=== PATIENT | female | born 1985 | race Caucasian/White ===

== ENCOUNTER → 2017-06-15 | Outpatient (CLI) | payer BC | END | disposition home or self-care (01) | LOC: C.PAPS 18:00 | PROVIDERS: ATTEND Obstetrics & Gynecology | DX: Z01.419 Encounter for gynecological examination (general) (routine) without abnormal findings (principal) ==

== ENCOUNTER → 2017-06-24 | Outpatient (CLI) | payer BC ==
[2017-06-24 13:05] LABS: BASO % 0.7 %; BASO ABS # 0.05 K/uL (0-0.2); COMPLETE YES; EOS % 4.4 %; IG% 0.1 %; LYMPH % 30.8 %; LYMPH ABS # 2.22 K/uL (1.2-3.4); MEAN CELL VOLUME 89.2 fL (80-100); MEAN CORPUSCULAR HEMOGLOBIN 29.7 pg (25-34); MEAN CORPUSCULAR HGB CONC 33.3 g/dl (32-36); MEAN PLATELET VOLUME 10.5 fL (7.4-10.4); MONO % 7.8 %; NEUT % 56.2 %; PLATELET COUNT 335 K/uL (130-400); RED BLOOD COUNT 4.82 M/uL (4.2-5.4)
[2017-06-24 13:10] LABS: ESTIMATED AVERAGE GLUCOSE 97 mg/dl; HA1C FLAG Normal (Normal)
[2017-06-24 13:29] LABS: INSULIN FASTING 10.6 mU/L (3-25)
[2017-06-24 13:33] LABS: ALT/SGPT 30 U/L (12-78); AST/SGOT 17 U/L (15-37); BLOOD UREA NITROGEN 14 mg/dl (7-18); CREATININE 0.68 mg/dl (0.60-1.20); GLUCOSE 86 mg/dl (70-99)
[2017-06-24 13:34] LABS: ALKALINE PHOSPHATASE 90 U/L (45-117)
== END | disposition home or self-care (01) ==
LOC: C.LABBC 10:52
PROVIDERS: ATTEND Specialist
DX: Z31.41 Encounter for fertility testing (principal); E28.2 Polycystic ovarian syndrome; Z13.21 Encounter for screening for nutritional disorder

== ENCOUNTER → 2017-07-19 | Outpatient (CLI) | payer BC | END | disposition home or self-care (01) | LOC: C.LABBC 09:35 | PROVIDERS: ATTEND Specialist | DX: Z31.41 Encounter for fertility testing (principal); E28.2 Polycystic ovarian syndrome; Z13.21 Encounter for screening for nutritional disorder ==

== ENCOUNTER → 2017-10-09 | Outpatient (CLI) | payer BC | END | disposition home or self-care (01) | LOC: C.LAB 07:09 | PROVIDERS: ATTEND Specialist | DX: O09.00 Supervision of pregnancy with history of infertility, unspecified trimester (principal) ==

== ENCOUNTER → 2017-11-29 | Outpatient (CLI) | payer BC | END | disposition home or self-care (01) | LOC: C.LAB 16:33 | PROVIDERS: ATTEND Specialist | DX: O09.00 Supervision of pregnancy with history of infertility, unspecified trimester (principal) ==

== ENCOUNTER → 2017-12-04 | Outpatient (CLI) | payer BC | END | disposition home or self-care (01) | LOC: C.LAB 07:31 | PROVIDERS: ATTEND Specialist | DX: O09.00 Supervision of pregnancy with history of infertility, unspecified trimester (principal) ==

== ENCOUNTER → 2017-12-29 | Outpatient (CLI) | payer BC | END | disposition home or self-care (01) | LOC: C.LABSPEC 17:44 | PROVIDERS: ATTEND Obstetrics & Gynecology | DX: O09.811 Supervision of pregnancy resulting from assisted reproductive technology, first trimester (principal) ==

== ENCOUNTER → 2018-01-05 | Outpatient (CLI) | payer BC ==
[2018-01-05 16:37] LABS: BASO % 0.3 %; BASO ABS # 0.04 K/uL (0-0.2); EOS % 1.6 %; EOS ABS # 0.22 K/uL (0-0.5); HEMATOCRIT 39.4 % (37-47); IG# 0.03 K/uL (0.00-0.02); LYMPH % 17.8 %; LYMPH ABS # 2.39 K/uL (1.2-3.4); MEAN CELL VOLUME 86.8 fL (80-100); MEAN CORPUSCULAR HEMOGLOBIN 28.6 pg (25-34); MEAN PLATELET VOLUME 10.4 fL (7.4-10.4); MONO % 6.9 %; MONO ABS # 0.93 K/uL (0.11-0.59); NEUT % 73.2 %; NEUT ABS # 9.82 K/uL (1.4-6.5); PLATELET COUNT 378 K/uL (130-400); RED CELL DISTRIBUTION WIDTH CV 13.1 % (11.5-14.5); RED CELL DISTRIBUTION WIDTH SD 42.1 fL (36.4-46.3); WHITE BLOOD COUNT 13.43 K/uL (4.8-10.8)
== END | disposition home or self-care (01) ==
LOC: C.LAB1850 15:11
PROVIDERS: ATTEND Obstetrics & Gynecology
DX: O09.811 Supervision of pregnancy resulting from assisted reproductive technology, first trimester (principal); Z3A.00 Weeks of gestation of pregnancy not specified

== ENCOUNTER 2021-03-08 07:43 | Inpatient (IN) ==
[2021-03-08] MEDS ORDERED: OXYTOCIN 30 UNITS/500 ML BAG IV PRN ×2 (08:06→08:19)
--- NOTE | 2021-03-08 08:46 | History & Physical Report ---
Date of Service March 08, 2021 Assessment & Plan (1) resulting from in vitro fertilization: Admit IV, labs, pitocin per protocol, AROM when able. Per Dr. Olea discussion w/ patient, offered primary c/s but pt. prefers attempt at induction. (2) Encounter for planned induction of labor: (3) LGA (large for gestational age) fetus affecting management of mother: (4) Supervision of elderly multigravida: (5) hemorrhage: (6) Preeclampsia: baby ASA Present on Admission?: No Admission and Anticipated Discharge Date Admission Date: March 08, 2021 History of Present Illness Chief Complaint: Planned induction Primary Care Provider: Crystal Gupta DO Ioana Bailey is a 36 y/o female currently at 39.1 WGA with an STEPHANIE 03/14/21 as determined by ultrasound who is here for term induction for large gestational age. no contractions; no movement; no fluid loss; no bloody show Had regular appointments with OB. PNC complicated by 1. IVF icsi 2. AMA 3. LGA 02/17/21 efw> 98th percentile Labs: Blood type: A positive Rubella: immune VDRL/RPR: non reactive Gonorrhea: negative Chlamydia: negative HIV: negative HbSAg: negative GBS: negative Covid-19: negative Other screens: cff-DNA: declined Allergies Allergy/AdvReac Type Severity Reaction Status Date / Time No Known Allergies Allergy Verified 03/08/21 09:43 Home Medications Medication Instructions Recorded Confirmed Type breast pump #1 ea 12/22/20 03/05/21 Rx aspirin [Aspirin Low Dose] 81 mg PO DAILY 03/08/21 03/08/21 History prenat.vits,christy,ihs-ihhf-uqkdz 1 tab PO DAILY 03/08/21 03/08/21 History [ Vitamin] Patient History Medical History History of in vitro fertilization Mild pre-eclampsia in third trimester Obesity PCOS (polycystic ovarian syndrome) hemorrhage Preeclampsia Surgical History H/O oral surgery H/O wisdom tooth extraction Family History Father Diabetes Cancer Hypertension Grandmother Stroke Social History Smoking Status: Never smoker Second Hand Exposure: Yes (parents both smoked); Hx Alcohol Use: No Hx Substance Use: No Preferred Language: Lao Communication Ability: Effective Molded Goods Inspector Trimmer Required: No Beliefs That Will Affect Care: None marital status: marital status details: Good (39) [phone] Current Living Situation: Spouse Current Living Situation Comment: lives with spouse, son, 2 dogs. 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 Other Information That Helps Us Care for You: No Feels Safe at Home: Yes Safety Concerns: Feels Safe At This Time Assistive Devices: None Physical Exam Physical Exam: General: Alert, oriented. No acute distress. Cardiac: Regular rate and rhythm, no murmurs/rubs/gallops. Respiratory: Clear to auscultation bilaterally a/p, no wheezes/rales/rhonchi. No increased work of breathing. Symmetrical chest rise. No respiratory distress. Pelvic: Dilation 4cm; [id number]; Station -3per Dr. Olea, monday exam, mid soft Lower Extremities: No lower extremity edema or swelling. No deep calf pain. Greg's negative bilaterally FHTs 120 moderate variability, categ 1, TOCO irregular ctx. Results & Data ([facility]) Vital Signs (Past 12 Hours) Vital Signs Temp Pulse Resp BP 03/08/21 08:01 36.5 C 103 H 20 133/88 Code Status & VTE Plan VTE Prophylaxis Plan VTE Prophylaxis will be ordered: No Supervising Physician Co-Signing Physician Notes Resident Physician Supervision Note: I was present with Dr. Salcido during the history and exam. I discussed the case with the resident and agree with the findings and plan as documented in the note. Any exceptions or clarifications are listed here: patient here for planned induction with known LGA. efw was >98% on u/s done about 2.5 wks ago. aware of risks, like shoulder dystocia and does not desire direct c/s, she desires attempt at induction with vaginal delivery. cx favorable, plan pitocin and then arom. FHTs categ 1. Has tested pelvis to 7.5#. Documented By: Hilary Olea MD, FACOG
[2021-03-08] MEDS: LACTATED RINGER'S 1,000 ML IV PRN ×3 (09:07→17:54)
[2021-03-08 10:01] LABS: Hematocrit (blood only) 35.6 % (37-47); Mean Corpuscular Hemoglobin 25.6 pg (25-34); Mean Corpuscular Hgb Conc 30.9 g/dL (32-36); Mean Corpuscular Volume 82.8 fL (80-100); Mean Platelet Volume 10.7 fL (7.4-10.4); Platelet Count 298 K/uL (130-400); RDW Coefficient of Variation 15.3 % (11.5-14.5); RDW Standard Deviation 46.5 fL (36.4-46.3); White Blood Count 14.71 K/uL (4.8-10.8)
--- NOTE | 2021-03-08 13:21 | Labor Progress Brief Note ---
Date of Service March 08, 2021 Subjective Reason For Note: Routine Evaluation LATE ENTRY, pt seen at 1234 pt comfortable Assessment & Plan (1) Encounter for planned induction of labor: (2) LGA (large for gestational age) fetus affecting management of mother: (3) resulting from in vitro fertilization: (4) Supervision of elderly multigravida: c/w pit, cephalic too high to arom yet, fhts categ 1. pt verbalized understanding. Admission and Anticipated Discharge Date Admission Date: March 08, 2021 Physical Exam Constitutional: WD/WN, vitals as above Genitourinary: Manual OB Exam: + cervical dilation 4 cm, + cervical effacement (75%) and + station high OB Exam Monitor Tracing: + external FHT monitor used, + external uterine monitor used (q2-3), + category I and + normal FHT variability pit at 9 Results & Data ([facility]) Vital Signs (Past 12 Hours) Vital Signs Temp Pulse Resp BP 03/08/21 12:51 109 H 142/101 H 03/08/21 12:48 103 H 138/90 03/08/21 11:36 109 H 137/93 03/08/21 09:22 103 H 115/73 03/08/21 08:40 97.7 F 20 03/08/21 08:01 97.7 F 103 H 20 133/88 Coding Level of Care Code None Diagnoses Encounter for planned induction of labor Z34.90 LGA (large for gestational age) fetus affecting management of mother O36.60X0 resulting from in vitro fertilization O09.819 Supervision of elderly multigravida O09.529
--- NOTE | 2021-03-08 16:14 | Labor Progress Brief Note ---
Date of Service March 08, 2021 Subjective Reason For Note: Routine Evaluation feels some pressure and some more pain with ctx. Assessment & Plan (1) Supervision of elderly multigravida: (2) resulting from in vitro fertilization: (3) LGA (large for gestational age) fetus affecting management of mother: (4) Encounter for planned induction of labor: c/w pit, will see how arom helps labor pattern. fhts categ 1. Admission and Anticipated Discharge Date Admission Date: March 08, 2021 Physical Exam Constitutional: WD/WN, vitals as above Genitourinary: Manual OB Exam: + cervical dilation 4 cm, + cervical effacement 90%, + station -2 and + amniotic fluid (AROM) clear OB Exam Monitor Tracing: + external FHT monitor used, + external uterine monitor used (q3), + category I and + normal FHT variability Results & Data ([facility]) Vital Signs (Past 12 Hours) Vital Signs Temp Pulse Resp BP 03/08/21 14:29 105 H 119/79 03/08/21 12:51 97.7 F 109 H 20 142/101 H 03/08/21 12:48 103 H 138/90 03/08/21 11:36 109 H 137/93 03/08/21 09:22 103 H 115/73 03/08/21 08:40 97.7 F 20 03/08/21 08:01 97.7 F 103 H 20 133/88 Coding Level of Care Code None Diagnoses Supervision of elderly multigravida O09.529 resulting from in vitro fertilization O09.819 LGA (large for gestational age) fetus affecting management of mother O36.60X0 Encounter for planned induction of labor Z34.90
[2021-03-08] MEDS ORDERED: fentaNYL citrate 100 MCG/2 ML VIAL ONE (16:43)
[2021-03-08] MEDS ORDERED: SODIUM CHLORIDE 0.9% INJ 10 ML VIAL ONE (16:43)
[2021-03-08] MEDS ORDERED: ePHEDrine sulfate 50 MG/ML AMP ONE (16:43)
[2021-03-08] MEDS ORDERED: BUPIVACAINE 0.25% 30 ML VIAL ONE (16:43)
[2021-03-08] MEDS ORDERED: fentaNYL 2MCG/ML ROPIVACAINE 1.25MG/ML 100 ML BAG EPI ONE (16:44)
--- NOTE | 2021-03-08 17:41 | Anesthesiology Consultation ---
Date of Service March 08, 2021 Assessment & Plan ASA ASA2E Proposed Anesthesia Anesthesia Type: Labor Epidural and CSE History Height/Weight Height: 5 ft 4 in Weight: 114.759 kg Allergies Allergy/AdvReac Type Severity Reaction Status Date / Time No Known Allergies Allergy Verified 03/08/21 09:43 Medications Home Medications Medication Instructions Recorded Confirmed Last Taken breast pump #1 ea 12/22/20 03/05/21 Unknown aspirin [Aspirin Low Dose] 81 mg PO DAILY 03/08/21 03/08/21 03/07/21 12:00 prenat.vits,christy,bvj-xyrf-atnsn 1 tab PO DAILY 03/08/21 03/08/21 03/07/21 12:00 [ Vitamin] Active Medications Generic Name Dose Route Start Last Admin Trade Name Freq PRN Reason Stop Dose Admin Oxytocin 30 units in 500 mls @ 19 mls/hr 03/08/21 08:19 03/08/21 16:24 Pitocin IV 03/10/21 08:18 1.14 units/hr .Q24H PRN 19 mls/hr Labor Induction/Augmentation Titration Protocol 1.14 UNITS/HR Lactated Ringer's 1,000 mls @ 125 mls/hr 03/08/21 08:06 03/08/21 17:30 Lr IV 03/10/21 08:05 125 mls/hr .Q8H PRN Infusion L&D Protocol Protocol Past Medical History Medical History History of in vitro fertilization Mild pre-eclampsia in third trimester Obesity PCOS (polycystic ovarian syndrome) hemorrhage Preeclampsia Past Family History Family History Father Diabetes Cancer Hypertension Grandmother Stroke Past Surgical History Surgical History H/O oral surgery H/O wisdom tooth extraction Social History Smoking Status: Never smoker Hx Alcohol Use: No Hx Substance Use: No substance use type: does not use Physical Exam Vital Signs Last Vital Signs Temp 36.5 C 03/08/21 16:13 Pulse 105 H 03/08/21 17:40 Resp 20 03/08/21 16:13 BP 94/54 L 03/08/21 17:40 Pulse Ox 98 03/08/21 17:39 Testing Laboratory Results 03/08/21 09:27
[2021-03-08] MEDS ORDERED: NALBUPHINE HCL INJ 10 MG/ML AMP IV PRN ×2 (17:44→23:57)
[2021-03-08] MEDS ORDERED: diphenhydrAMINE 50 MG/ML VIAL IV PRN ×2 (17:44→23:57)
[2021-03-08] MEDS ORDERED: NALOXONE HCL 0.4 MG/1 ML VIAL/CARP IV PRN ×2 (17:44→23:57)
[2021-03-08] MEDS ORDERED: ePHEDrine sulfate 50 MG/ML AMP IV PRN ×2 (17:44→23:57)
[2021-03-08] MEDS ORDERED: NALOXONE HCL 1 MG in SODIUM CHLORIDE 0.9% 1000ML 1,000 ML IV PRN ×2 (17:44→23:57)
[2021-03-08] MEDS ORDERED: fentaNYL 2MCG/ML ROPIVACAINE 1.25MG/ML 100 ML BAG EPI PRN (17:44)
[2021-03-08] MEDS ORDERED: LIDOCAINE 2%/EPINEPHRINE 1:200,000 20 ML SDV ONE ×2 (18:42→23:12)
--- NOTE | 2021-03-08 23:11 | Labor Progress Brief Note ---
Date of Service March 08, 2021 Subjective Reason For Note: Requested By RN Patient refusing to continue to push, feels she has been pushing for hours, when has only been 50min. Assessment & Plan (1) Supervision of elderly multigravida: (2) resulting from in vitro fertilization: (3) Encounter for planned induction of labor: (4) LGA (large for gestational age) fetus affecting management of mother: pt now complete. has refused to cont to push, requests section. fhts categ 1. pit off. Admission and Anticipated Discharge Date Admission Date: March 08, 2021 Physical Exam Constitutional: WD/WN, vitals as above Genitourinary: Manual OB Exam: + cervical dilation 10 cm, + cervical effacement 100% and + station + 1 OB Exam Monitor Tracing: + external FHT monitor used, + external uterine monitor used (q2), + category I and + normal FHT variability pit is off Results & Data ([facility]) Vital Signs (Past 12 Hours) Vital Signs Temp Pulse Resp BP Pulse Ox 03/08/21 23:04 116 H 98 03/08/21 22:59 117 H 98 03/08/21 22:54 121 H 97 03/08/21 22:51 120 H 135/84 03/08/21 22:49 134 H 97 03/08/21 22:44 143 H 96 03/08/21 22:39 129 H 97 03/08/21 22:34 151 H 95 03/08/21 22:31 144 H 92 03/08/21 22:29 127 H 97 03/08/21 22:26 138 H 92 03/08/21 22:24 141 H 92 03/08/21 22:19 142 H 97 03/08/21 22:14 140 H 98 03/08/21 22:09 142 H 97 03/08/21 22:04 135 H 99 03/08/21 21:59 117 H 100 03/08/21 21:54 126 H 99 03/08/21 21:52 121 H 137/83 03/08/21 21:51 127 H 93 03/08/21 21:49 117 H 100 03/08/21 21:44 120 H 99 03/08/21 21:39 125 H 99 03/08/21 21:37 120 H 120/73 03/08/21 21:34 121 H 99 03/08/21 21:29 122 H 100 03/08/21 21:24 132 H 99 03/08/21 21:22 144 H 147/69 H 89 L 03/08/21 21:19 129 H 100 03/08/21 21:14 127 H 98 03/08/21 21:09 128 H 100 03/08/21 21:07 125 H 145/92 H 03/08/21 21:04 121 H 99 03/08/21 20:59 124 H 100 03/08/21 20:55 98.1 F 18 03/08/21 20:54 129 H 100 03/08/21 20:49 119 H 99 03/08/21 20:44 116 H 100 03/08/21 20:39 112 H 100 03/08/21 20:36 116 H 132/75 03/08/21 20:34 114 H 100 03/08/21 20:29 111 H 100 03/08/21 20:24 114 H 99 03/08/21 20:22 105 H 139/98 03/08/21 20:19 108 H 100 03/08/21 20:14 109 H 98 03/08/21 20:09 102 H 100 03/08/21 20:04 112 H 18 100 03/08/21 19:59 109 H 98 03/08/21 19:54 114 H 98 03/08/21 19:52 115 H 134/77 03/08/21 19:49 117 H 98 03/08/21 19:44 119 H 97 03/08/21 19:39 120 H 98 03/08/21 19:37 117 H 129/77 03/08/21 19:34 119 H 99 03/08/21 19:29 118 H 98 03/08/21 19:24 117 H 98 03/08/21 19:22 123 H 131/68 03/08/21 19:19 117 H 99 03/08/21 19:14 121 H 98 03/08/21 19:09 112 H 100 03/08/21 19:06 122 H 128/82 03/08/21 19:04 120 H 98 03/08/21 19:02 97.9 F 18 03/08/21 18:59 114 H 98 03/08/21 18:54 124 H 97 03/08/21 18:51 120 H 120/81 03/08/21 18:49 124 H 96 03/08/21 18:44 127 H 96 03/08/21 18:39 127 H 96 03/08/21 18:36 134 H 110/63 03/08/21 18:34 128 H 97 03/08/21 18:29 122 H 98 03/08/21 18:24 135 H 99 03/08/21 18:19 138 H 117/68 100 03/08/21 18:14 123 H 96 03/08/21 18:13 130 H 108/65 03/08/21 18:09 129 H 109/62 97 03/08/21 18:04 123 H 98 03/08/21 18:03 134 H 115/65 03/08/21 17:59 139 H 109/62 97 03/08/21 17:54 126 H 106/57 L 99 03/08/21 17:52 130 H 110/64 03/08/21 17:49 138 H 99 03/08/21 17:44 117 H 99 03/08/21 17:43 97.5 F L 115 H 20 121/81 03/08/21 17:41 103 H 112/75 03/08/21 17:40 105 H 94/54 L 03/08/21 17:39 102 H 75/47 L 98 03/08/21 17:37 111 H 75/50 L 03/08/21 17:35 129 H 104/64 03/08/21 17:34 130 H 99 03/08/21 17:33 129 H 103/66 03/08/21 17:31 126 H 116/81 03/08/21 17:29 121 H 127/79 99 03/08/21 17:24 114 H 99 03/08/21 17:19 113 H 98 03/08/21 17:14 114 H 99 03/08/21 17:09 97 H 98 03/08/21 16:13 97.7 F 110 H 20 131/95 03/08/21 14:29 105 H 119/79 03/08/21 12:51 97.7 F 109 H 20 142/101 H 03/08/21 12:48 103 H 138/90 03/08/21 11:36 109 H 137/93 Coding Level of Care Code None Diagnoses Supervision of elderly multigravida O09.529 resulting from in vitro fertilization O09.819 Encounter for planned induction of labor Z34.90 LGA (large for gestational age) fetus affecting management of mother O36.60X0
[2021-03-08] MEDS ORDERED: CITRIC ACID/SODIUM CITRATE 15 ML UDC ONE (23:14)
[2021-03-08] MEDS ORDERED: LACTATED RINGER'S 1,000 ML IV SCH (23:15)
[2021-03-08] MEDS ORDERED: NO NARCOTICS OR SEDATIVES SCH (23:45)
[2021-03-08] MEDS ORDERED: DC INTRASPINAL MORPHINE SCH (23:45)
[2021-03-08] MEDS ORDERED: SODIUM CHLORIDE 0.9% 1000ML 1,000 ML IV SCH (23:45)
[2021-03-08] MEDS ORDERED: MoRPHine SULFATE PF 1 MG/ML 10 ML AMP/VIAL ONE (23:53)
[2021-03-08] MEDS ORDERED: OXYTOCIN 10 UNITS/ML VIAL ONE (23:53)
[2021-03-08] MEDS ORDERED: PHENYLEPHRINE 100MCG/ML 5ML SYR ONE (23:55)
[2021-03-08] MEDS ORDERED: HYDROmorphone INJ 0.5 MG/0.5 ML SYR IV PRN (23:57)
[2021-03-08] MEDS ORDERED: PROMETHAZINE HCL 25 MG in SODIUM CHLORIDE 0.9% 50 ML IV PRN (23:57)
[2021-03-08] MEDS ORDERED: MoRPHine SULFATE PF 1 MG/ML 10 ML AMP/VIAL INT SPINAL ONE (23:57)
[2021-03-08] MEDS ORDERED: ONDANSETRON INJ 2 MG/ML 2 ML VIAL IV PRN (23:57)
[2021-03-08] MEDS ORDERED: NALOXONE HCL 0.08 MG in SYRINGE 1.8 ML IV PRN (23:57)
[2021-03-08] MEDS ORDERED: MEPERIDINE HCL 25 MG/ML CARP/VIAL IV PRN (23:57)
[2021-03-08] MEDS ORDERED: METOCLOPRAMIDE HCL 10 MG in SODIUM CHLORIDE 0.9% 50 ML IV PRN (23:57)
[2021-03-08] MEDS ORDERED: KETOROLAC 30 MG/ML VIAL IV PRN (23:57)
[2021-03-08] MEDS ORDERED: MoRPHine SULFATE 2 MG/ML CARP IV PRN (23:57)
[2021-03-08] MEDS ORDERED: LACTATED RINGER'S 500 ML IV PRN (23:57)
[2021-03-09] MEDS ORDERED: OXYTOCIN 10 UNITS/ML VIAL ONE ×2 (00:23)
--- NOTE | 2021-03-09 00:24 | Post Operative Brief Note ---
PG Immediate Post Op with CF Date of Surgery March 09, 2021 Pre & Post Diagnosis Operation Date: 03/08/21 22:50 Pre-Op Diagnosis: 39 weeks induction of labor IVF LGA AMA Elective primary C/S Post-Op Diagnosis: same as pre op del viable female at 2348 I identified the patient and participated in the time-out.: Yes Procedure Operation Date: 03/08/21 22:50 Primary Low Transverse Section Surgeon Hilary Olea MD, FACOG Technician Preventative Medicine Arturo Estimated Blood Loss 800 Findings Consistent with Post-Op Diagnosis (viable female apgars 8,9 , normal uterus, tubes and ovaries bilaterally. extension of hysterotomy to left toward cervix. ) Fluids 1800 Specimens Specimen Description: placenta-hold cord blood Drains Mi Catheter Anesthesia Type Labor Epidural Complications none Disposition Accompanied Patient To Recovery: No Disposition: L&D
--- NOTE | 2021-03-09 00:32 | Operative Report ---
PG Post Operative Report Pre & Post Diagnosis Operation Date: 03/08/21 22:50 Pre-Op Diagnosis: 39+ weeks induction of labor IVF/ICSI Suspected LGA AMA Elective primary C/S Post-Op Diagnosis: same as pre op I identified the patient and participated in the time-out.: Yes Procedure Operation Date: 03/08/21 22:50 Primary Low Transverse Section Surgeon Hilary Olea MD, FACOG Regional Education Coordinator Arturo Estimated Blood Loss 800 Findings Consistent with Post-Op Diagnosis (viable female apgars 8,9 , normal uterus, tubes and ovaries bilaterally. extension of hysterotomy to left toward cervix. ) Fluids 1800 Specimens cord blood to lab Drains park Anesthesia Type Labor Epidural Complications none Disposition Accompanied Patient To Recovery: No Disposition: L&D Indications 36yo at 39+wks ega induced for suspected LGA and dilated to complete, pushed x 50min and requested section, could not push anymore, was exhausted. Exam with cephalic at +1 station only. also complicated by AMA, IVF. Description of Procedure The patient was taken to the operating room and identified. After adequate anesthesia was obtained, she was placed in the supine position with a leftward tilt on the operating table and prepped and draped in the usual sterile fashion. A park catheter had already been placed. The knife was used to create a Pfannensteil skin incision that was carried down to the underlying layer of fascia. The fascia was nicked in the midline and this opening was extended laterally using Ocampo scissors. See clamps were placed on the superior and inferior aspect of the fascial incision tenting it upward and the underlying r ectus muscles were dissected off the overlying fascia both sharply and bluntly using Ocampo scissors. The rectus muscles were bluntly in the midline. The peritoneal cavity was bluntly entered into. This opening was stretched. The bladder blade was placed. The vesicouterine peritoneum was elevated and opened up into and the bladder flap was created digitally and bladder blade was replac ed. The knife was used to create a hysterotomy and this opening was stretched. The operators hand was placed through the hysterotomy and the bladder blade was removed. The head was elevated and flexed and with fundal pressure the head was delivered. The shoulders and body were rapidly delivered. The cord was clamped and cut and the infant's mouth and nares were bulb suction. The infant was handed off to the awaiting pediatricians. Cord blood was obtained. The placenta was manually expressed. The uterus was exteriorized and cleared of all clots and debris. Dilute IV Pitocin was begun. The uterine tone was improving with time. The hysterotomy was closed in a running interlocking fashion using 0 Vicryl followed by a second imbricating layer of 0 Vicryl. There was an extension of the hysterotomy to the left that was repaired in 2 layers as well. The hysterotomy was hemostatic. The pelvis was irrigated. The uterus was returned to the abdomen. The gutters were cleared of all clots and debris. The hysterotomy was reinspected and noted to have a bleeding area in midline that was stitched with figure of eight suture of 0-vicryl for excellent hemostasis. The fascia was then closed in running fashion using 0 Vicryl. The subcutaneous fat was copiously irrigated and reapproximated using 2-0 chromic. The skin was closed in a subcuticular fashion using 4-0 Vicryl. At this point the procedure was terminated. The patient was transferred to the recovery room in stable condition. All sponge, lap and needle counts are correct x2. I attest to the content of the Intraoperative Record and any orders documented therein. Any exceptions are noted below. OB Procedure charges OB Charges 21782 C/S
[2021-03-09] MEDS ORDERED: HYDROCORTISONE ACETATE 25 MG SUPP PR PRN (00:48)
[2021-03-09] MEDS ORDERED: BENZOCAINE 20% AER SPR 82.5 GM CAN EXT PRN (00:48)
[2021-03-09] MEDS ORDERED: SUPERCREAM 0.870% 15 GM JAR EXT PRN (00:48)
[2021-03-09] MEDS ORDERED: DIPHTHERIA/TETANUS/PERTUSSIS 0.5 ML SYR/VIAL IM ONE (00:48)
[2021-03-09] MEDS ORDERED: LACTATED RINGER'S 1,000 ML IV SCH (00:48)
[2021-03-09] MEDS ORDERED: SENNA 8.6 MG TAB PO PRN (00:48)
[2021-03-09] MEDS ORDERED: MAGNESIUM HYDROXIDE SUSP 30 ML UDC PO PRN (00:48)
[2021-03-09] MEDS: OXYTOCIN 20 UNITS in LACTATED RINGER'S 1,000 ML IV SCH ×2 (01:46→11:08)
--- NOTE | 2021-03-09 05:43 | Anesthesiology Progress Note ---
Date of Service March 09, 2021 Anesthesia Post Procedure Vital Signs Vital Signs: Temp Pulse Pulse Resp BP BP Pulse Ox 03/09/21 05:02 20 96 03/09/21 04:00 18 95 03/09/21 03:00 36.6 C 109 H 18 153/76 H 98 03/09/21 02:51 36.7 C 116 H 18 136/66 96 03/09/21 02:46 100 H 94 03/09/21 02:41 101 H 145/72 H 92 03/09/21 02:36 98 H 96 03/09/21 02:31 99 H 146/78 H 95 03/09/21 02:26 108 H 97 03/09/21 02:21 36.7 C 100 H 18 144/72 H 97 03/09/21 02:16 96 H 96 03/09/21 02:11 94 H 138/76 95 03/09/21 02:09 102 H 93 03/09/21 02:06 90 95 03/09/21 02:01 98 H 145/82 H 96 03/09/21 01:56 94 H 96 03/09/21 01:51 94 H 146/79 H 97 03/09/21 01:46 94 H 97 03/09/21 01:41 36.7 C 98 H 20 142/78 H 96 03/09/21 01:36 92 H 98 03/09/21 01:32 92 H 23 131/72 03/09/21 01:31 97 H 94 03/09/21 01:26 99 H 100 03/09/21 01:21 94 H 18 146/87 H 99 03/09/21 01:16 95 H 98 03/09/21 01:12 98 H 136/84 03/09/21 01:11 97 H 24 98 03/09/21 01:06 98 H 99 03/09/21 01:02 100 H 143/89 H 03/09/21 01:01 99 H 20 99 03/09/21 00:56 101 H 100 03/09/21 00:52 100 H 150/79 H 03/09/21 00:51 100 H 20 100 03/09/21 00:48 112 H 90 03/09/21 00:46 97 H 100 03/09/21 00:41 36.7 C 101 H 18 131/77 98 03/08/21 23:26 139 H 131/78 03/08/21 23:24 142 H 97 03/08/21 23:19 115 H 97 03/08/21 23:14 36.7 C 120 H 18 98 03/08/21 23:09 128 H 97 03/08/21 23:04 116 H 98 03/08/21 22:59 117 H 98 03/08/21 22:54 121 H 97 03/08/21 22:51 120 H 135/84 03/08/21 22:49 134 H 97 03/08/21 22:44 143 H 96 03/08/21 22:39 129 H 97 03/08/21 22:34 151 H 95 03/08/21 22:31 144 H 92 03/08/21 22:29 127 H 97 03/08/21 22:26 138 H 92 03/08/21 22:24 141 H 92 03/08/21 22:19 142 H 97 03/08/21 22:14 140 H 98 03/08/21 22:09 142 H 97 03/08/21 22:07 18 03/08/21 22:04 135 H 99 03/08/21 21:59 117 H 100 03/08/21 21:54 126 H 99 03/08/21 21:52 121 H 137/83 03/08/21 21:51 127 H 93 03/08/21 21:49 117 H 100 03/08/21 21:44 120 H 99 03/08/21 21:39 125 H 99 03/08/21 21:37 120 H 120/73 03/08/21 21:34 121 H 99 03/08/21 21:29 122 H 100 03/08/21 21:24 132 H 99 03/08/21 21:22 144 H 147/69 H 89 L 03/08/21 21:19 129 H 100 03/08/21 21:14 127 H 98 03/08/21 21:09 128 H 100 03/08/21 21:07 125 H 145/92 H 03/08/21 21:04 121 H 99 03/08/21 20:59 124 H 100 03/08/21 20:55 36.7 C 18 03/08/21 20:54 129 H 100 03/08/21 20:49 119 H 99 03/08/21 20:44 116 H 100 03/08/21 20:39 112 H 100 03/08/21 20:36 116 H 132/75 03/08/21 20:34 114 H 100 03/08/21 20:29 111 H 100 03/08/21 20:24 114 H 99 03/08/21 20:22 105 H 139/98 03/08/21 20:19 108 H 100 03/08/21 20:14 109 H 98 03/08/21 20:09 102 H 100 03/08/21 20:04 112 H 18 100 03/08/21 19:59 109 H 98 03/08/21 19:54 114 H 98 03/08/21 19:52 115 H 134/77 03/08/21 19:49 117 H 98 03/08/21 19:44 119 H 97 03/08/21 19:39 120 H 98 03/08/21 19:37 117 H 129/77 03/08/21 19:34 119 H 99 03/08/21 19:29 118 H 98 03/08/21 19:24 117 H 98 03/08/21 19:22 123 H 131/68 03/08/21 19:19 117 H 99 03/08/21 19:14 121 H 98 03/08/21 19:09 112 H 100 03/08/21 19:06 122 H 128/82 03/08/21 19:04 120 H 98 03/08/21 19:02 36.6 C 18 03/08/21 18:59 114 H 98 03/08/21 18:54 124 H 97 03/08/21 18:51 120 H 120/81 03/08/21 18:49 124 H 96 03/08/21 18:44 127 H 96 03/08/21 18:39 127 H 96 03/08/21 18:36 134 H 110/63 03/08/21 18:34 128 H 97 03/08/21 18:29 122 H 98 03/08/21 18:24 135 H 99 03/08/21 18:19 138 H 117/68 100 03/08/21 18:14 123 H 96 03/08/21 18:13 130 H 108/65 03/08/21 18:09 129 H 109/62 97 03/08/21 18:04 123 H 98 03/08/21 18:03 134 H 115/65 03/08/21 17:59 139 H 109/62 97 03/08/21 17:54 126 H 106/57 L 99 03/08/21 17:52 130 H 110/64 03/08/21 17:49 138 H 99 03/08/21 17:44 117 H 99 03/08/21 17:43 36.4 C L 115 H 20 121/81 03/08/21 17:41 103 H 112/75 03/08/21 17:40 105 H 94/54 L 03/08/21 17:39 102 H 75/47 L 98 03/08/21 17:37 111 H 75/50 L 03/08/21 17:35 129 H 104/64 03/08/21 17:34 130 H 99 03/08/21 17:33 129 H 103/66 03/08/21 17:31 126 H 116/81 03/08/21 17:29 121 H 127/79 99 03/08/21 17:24 114 H 99 03/08/21 17:19 113 H 98 03/08/21 17:14 114 H 99 03/08/21 17:09 97 H 98 03/08/21 16:13 36.5 C 110 H 20 131/95 03/08/21 14:29 105 H 119/79 03/08/21 12:51 36.5 C 109 H 20 142/101 H 03/08/21 12:48 103 H 138/90 03/08/21 11:36 109 H 137/93 03/08/21 09:22 103 H 115/73 03/08/21 08:40 36.5 C 20 03/08/21 08:01 36.5 C 103 H 20 133/88 Pulse Ox 03/09/21 05:02 03/09/21 04:00 03/09/21 03:00 98 03/09/21 02:51 03/09/21 02:46 03/09/21 02:41 03/09/21 02:36 03/09/21 02:31 03/09/21 02:26 03/09/21 02:21 03/09/21 02:16 03/09/21 02:11 03/09/21 02:09 03/09/21 02:06 03/09/21 02:01 03/09/21 01:56 03/09/21 01:51 03/09/21 01:46 03/09/21 01:41 03/09/21 01:36 03/09/21 01:32 03/09/21 01:31 03/09/21 01:26 03/09/21 01:21 03/09/21 01:16 03/09/21 01:12 03/09/21 01:11 03/09/21 01:06 03/09/21 01:02 03/09/21 01:01 03/09/21 00:56 03/09/21 00:52 03/09/21 00:51 03/09/21 00:48 03/09/21 00:46 03/09/21 00:41 03/08/21 23:26 03/08/21 23:24 03/08/21 23:19 03/08/21 23:14 03/08/21 23:09 03/08/21 23:04 03/08/21 22:59 03/08/21 22:54 03/08/21 22:51 03/08/21 22:49 03/08/21 22:44 03/08/21 22:39 03/08/21 22:34 03/08/21 22:31 03/08/21 22:29 03/08/21 22:26 03/08/21 22:24 03/08/21 22:19 03/08/21 22:14 03/08/21 22:09 03/08/21 22:07 03/08/21 22:04 03/08/21 21:59 03/08/21 21:54 03/08/21 21:52 03/08/21 21:51 03/08/21 21:49 03/08/21 21:44 03/08/21 21:39 03/08/21 21:37 03/08/21 21:34 03/08/21 21:29 03/08/21 21:24 03/08/21 21:22 03/08/21 21:19 03/08/21 21:14 03/08/21 21:09 03/08/21 21:07 03/08/21 21:04 03/08/21 20:59 03/08/21 20:55 03/08/21 20:54 03/08/21 20:49 03/08/21 20:44 03/08/21 20:39 03/08/21 20:36 03/08/21 20:34 03/08/21 20:29 03/08/21 20:24 03/08/21 20:22 03/08/21 20:19 03/08/21 20:14 03/08/21 20:09 03/08/21 20:04 03/08/21 19:59 03/08/21 19:54 03/08/21 19:52 03/08/21 19:49 03/08/21 19:44 03/08/21 19:39 03/08/21 19:37 03/08/21 19:34 03/08/21 19:29 03/08/21 19:24 03/08/21 19:22 03/08/21 19:19 03/08/21 19:14 03/08/21 19:09 03/08/21 19:06 03/08/21 19:04 03/08/21 19:02 03/08/21 18:59 03/08/21 18:54 03/08/21 18:51 03/08/21 18:49 03/08/21 18:44 03/08/21 18:39 03/08/21 18:36 03/08/21 18:34 03/08/21 18:29 03/08/21 18:24 03/08/21 18:19 03/08/21 18:14 03/08/21 18:13 03/08/21 18:09 03/08/21 18:04 03/08/21 18:03 03/08/21 17:59 03/08/21 17:54 03/08/21 17:52 03/08/21 17:49 03/08/21 17:44 03/08/21 17:43 03/08/21 17:41 03/08/21 17:40 03/08/21 17:39 03/08/21 17:37 03/08/21 17:35 03/08/21 17:34 03/08/21 17:33 03/08/21 17:31 03/08/21 17:29 03/08/21 17:24 03/08/21 17:19 03/08/21 17:14 03/08/21 17:09 03/08/21 16:13 03/08/21 14:29 03/08/21 12:51 03/08/21 12:48 03/08/21 11:36 03/08/21 09:22 03/08/21 08:40 03/08/21 08:01 Pain Intensity Lower Abdomen: Pain Intensity: 2 Transfer of Care Handoff Completed per policy Notes Mental Status: alert / awake / arousable and participated in evaluation Patient Amnestic to Procedure: Yes Nausea / Vomiting: adequately controlled Pain: adequately controlled Airway Patency, RR, SpO2: stable & adequate BP & HR: stable & adequate Hydration State: stable & adequate Neuraxial Anesthesia: was administered and sensory block resolved Anesthetic Complications: no major complications apparent
--- NOTE | 2021-03-09 06:52 | Obstetrical Progress Note ---
Date of Service <Ann Salcido MD - Last Filed: 03/09/21 07:50> March 09, 2021 Assessment & Plan <Ann Salcido MD - Last Filed: 03/09/21 07:50> (1) Encounter for care and examination after delivery: -stable, routine care -park removal, ambulation per duramorph orders -breast feeding, Rh+, RI -labs pending, BPs labile, will add cmp to am labs, no concerning symptoms for preeclampsia Subjective <Ann aSlcido MD - Last Filed: 03/09/21 07:50> Voiding: park catheter in place Passing Gas:: No Diet Tolerance:: clear liquids Lochia:: Small Feeding Type:: breast feeding Current Pain Level(1-10): 1 Post Ioana Bailey is a 36 y/o female who is POD #1 following for LGA at 39.1 WGA. She reports feeling well overall this morning. Minimal abdominal cramping & 1/10 pain well managed on analgesics. Park in place. Tolerating PO overnight and has not attempted to ambulate. Denies passing gas or a bowel movement. Has had minimal lochia this morning. Currently breast feeding. Review of Systems Denies fever, chills, sweats Denies shortness of breath, difficulty breathing, chest pain, palpitations, chest pressure. Denies breast pain. Denies dysuria. Denies headache or changes in vision. Physical Exam <Ann Salcido MD - Last Filed: 03/09/21 07:50> General: Alert, oriented. No acute distress. Cardiac: Regular rate and rhythm, no murmurs/rubs/gallops. Respiratory: Clear to auscultation bilaterally a/p, no wheezes/rales/rhonchi. No increased work of breathing. Symmetrical chest rise. No respiratory distress. Abdomen: Soft, nontender, nondistended. Bowel sounds present. Uterus: Uterine fundus firm, palpable at the umbilicus. Surgical dressing clean and dry. Lower Extremities: No lower extremity edema or swelling. No deep calf pain. Greg's negative bilaterally. Results & Data ([facility]) <Ann Salcido MD - Last Filed: 03/09/21 07:50> Vital Signs (Past 12 Hours) Vital Signs Temp Pulse Pulse Resp BP BP Pulse Ox 03/09/21 06:00 20 94 03/09/21 05:02 20 96 03/09/21 04:00 18 95 03/09/21 03:00 36.6 C 109 H 18 153/76 H 98 03/09/21 02:51 36.7 C 116 H 18 136/66 96 03/09/21 02:46 100 H 94 03/09/21 02:41 101 H 145/72 H 92 03/09/21 02:36 98 H 96 03/09/21 02:31 99 H 146/78 H 95 03/09/21 02:26 108 H 97 03/09/21 02:21 36.7 C 100 H 18 144/72 H 97 03/09/21 02:16 96 H 96 03/09/21 02:11 94 H 138/76 95 03/09/21 02:09 102 H 93 03/09/21 02:06 90 95 03/09/21 02:01 98 H 145/82 H 96 03/09/21 01:56 94 H 96 03/09/21 01:51 94 H 146/79 H 97 03/09/21 01:46 94 H 97 03/09/21 01:41 36.7 C 98 H 20 142/78 H 96 03/09/21 01:36 92 H 98 03/09/21 01:32 92 H 23 131/72 03/09/21 01:31 97 H 94 03/09/21 01:26 99 H 100 03/09/21 01:21 94 H 18 146/87 H 99 03/09/21 01:16 95 H 98 03/09/21 01:12 98 H 136/84 03/09/21 01:11 97 H 24 98 03/09/21 01:06 98 H 99 03/09/21 01:02 100 H 143/89 H 03/09/21 01:01 99 H 20 99 03/09/21 00:56 101 H 100 03/09/21 00:52 100 H 150/79 H 03/09/21 00:51 100 H 20 100 03/09/21 00:48 112 H 90 03/09/21 00:46 97 H 100 03/09/21 00:41 36.7 C 101 H 18 131/77 98 03/08/21 23:26 139 H 131/78 03/08/21 23:24 142 H 97 03/08/21 23:19 115 H 97 03/08/21 23:14 36.7 C 120 H 18 98 03/08/21 23:09 128 H 97 03/08/21 23:04 116 H 98 03/08/21 22:59 117 H 98 03/08/21 22:54 121 H 97 03/08/21 22:51 120 H 135/84 03/08/21 22:49 134 H 97 03/08/21 22:44 143 H 96 03/08/21 22:39 129 H 97 03/08/21 22:34 151 H 95 03/08/21 22:31 144 H 92 03/08/21 22:29 127 H 97 03/08/21 22:26 138 H 92 03/08/21 22:24 141 H 92 03/08/21 22:19 142 H 97 03/08/21 22:14 140 H 98 03/08/21 22:09 142 H 97 03/08/21 22:07 18 03/08/21 22:04 135 H 99 03/08/21 21:59 117 H 100 03/08/21 21:54 126 H 99 03/08/21 21:52 121 H 137/83 03/08/21 21:51 127 H 93 03/08/21 21:49 117 H 100 03/08/21 21:44 120 H 99 03/08/21 21:39 125 H 99 03/08/21 21:37 120 H 120/73 03/08/21 21:34 121 H 99 03/08/21 21:29 122 H 100 03/08/21 21:24 132 H 99 03/08/21 21:22 144 H 147/69 H 89 L 03/08/21 21:19 129 H 100 03/08/21 21:14 127 H 98 03/08/21 21:09 128 H 100 03/08/21 21:07 125 H 145/92 H 03/08/21 21:04 121 H 99 03/08/21 20:59 124 H 100 03/08/21 20:55 36.7 C 18 03/08/21 20:54 129 H 100 03/08/21 20:49 119 H 99 03/08/21 20:44 116 H 100 03/08/21 20:39 112 H 100 03/08/21 20:36 116 H 132/75 03/08/21 20:34 114 H 100 03/08/21 20:29 111 H 100 03/08/21 20:24 114 H 99 03/08/21 20:22 105 H 139/98 03/08/21 20:19 108 H 100 03/08/21 20:14 109 H 98 03/08/21 20:09 102 H 100 03/08/21 20:04 112 H 18 100 03/08/21 19:59 109 H 98 03/08/21 19:54 114 H 98 03/08/21 19:52 115 H 134/77 03/08/21 19:49 117 H 98 03/08/21 19:44 119 H 97 03/08/21 19:39 120 H 98 03/08/21 19:37 117 H 129/77 03/08/21 19:34 119 H 99 03/08/21 19:29 118 H 98 03/08/21 19:24 117 H 98 03/08/21 19:22 123 H 131/68 03/08/21 19:19 117 H 99 03/08/21 19:14 121 H 98 03/08/21 19:09 112 H 100 03/08/21 19:06 122 H 128/82 03/08/21 19:04 120 H 98 03/08/21 19:02 36.6 C 18 03/08/21 18:59 114 H 98 03/08/21 18:54 124 H 97 03/08/21 18:51 120 H 120/81 Pulse Ox 03/09/21 06:00 03/09/21 05:02 03/09/21 04:00 03/09/21 03:00 98 03/09/21 02:51 03/09/21 02:46 03/09/21 02:41 03/09/21 02:36 03/09/21 02:31 03/09/21 02:26 03/09/21 02:21 03/09/21 02:16 03/09/21 02:11 03/09/21 02:09 03/09/21 02:06 03/09/21 02:01 03/09/21 01:56 03/09/21 01:51 03/09/21 01:46 03/09/21 01:41 03/09/21 01:36 03/09/21 01:32 03/09/21 01:31 03/09/21 01:26 03/09/21 01:21 03/09/21 01:16 03/09/21 01:12 03/09/21 01:11 03/09/21 01:06 03/09/21 01:02 03/09/21 01:01 03/09/21 00:56 03/09/21 00:52 03/09/21 00:51 03/09/21 00:48 03/09/21 00:46 03/09/21 00:41 03/08/21 23:26 03/08/21 23:24 03/08/21 23:19 03/08/21 23:14 03/08/21 23:09 03/08/21 23:04 03/08/21 22:59 03/08/21 22:54 03/08/21 22:51 03/08/21 22:49 03/08/21 22:44 03/08/21 22:39 03/08/21 22:34 03/08/21 22:31 03/08/21 22:29 03/08/21 22:26 03/08/21 22:24 03/08/21 22:19 03/08/21 22:14 03/08/21 22:09 03/08/21 22:07 03/08/21 22:04 03/08/21 21:59 03/08/21 21:54 03/08/21 21:52 03/08/21 21:51 03/08/21 21:49 03/08/21 21:44 03/08/21 21:39 03/08/21 21:37 03/08/21 21:34 03/08/21 21:29 03/08/21 21:24 03/08/21 21:22 03/08/21 21:19 03/08/21 21:14 03/08/21 21:09 03/08/21 21:07 03/08/21 21:04 03/08/21 20:59 03/08/21 20:55 03/08/21 20:54 03/08/21 20:49 03/08/21 20:44 03/08/21 20:39 03/08/21 20:36 03/08/21 20:34 03/08/21 20:29 03/08/21 20:24 03/08/21 20:22 03/08/21 20:19 03/08/21 20:14 03/08/21 20:09 03/08/21 20:04 03/08/21 19:59 03/08/21 19:54 03/08/21 19:52 03/08/21 19:49 03/08/21 19:44 03/08/21 19:39 03/08/21 19:37 03/08/21 19:34 03/08/21 19:29 03/08/21 19:24 03/08/21 19:22 03/08/21 19:19 03/08/21 19:14 03/08/21 19:09 03/08/21 19:06 03/08/21 19:04 03/08/21 19:02 03/08/21 18:59 03/08/21 18:54 03/08/21 18:51 <Hilary Olea MD, FACOG - Last Filed: 03/09/21 07:56> Co-Signing Physician Notes Resident Physician Supervision Note: I was present with Dr. Salcido during the history and exam. I discussed the case with the resident and agree with the findings and plan as documented in the note. Any exceptions or clarifications are listed here: Pt doing well, no cp/sob, no almonte or visual change. some labile bps overnight. denies pain issues. angelo some po. duramorph orders up later today ff 2 down nt, dresssing in place, nt calves. tr edema. routine care today. , rh pos, ri. labs pending, will add cmp due to bps and monitor. Documented By: Hilary Olea MD, FACOG
[2021-03-09 08:03] LABS: Hematocrit (blood only) 27.8 % (37-47); Hemoglobin 8.8 g/dL (12.0-16.0); Mean Corpuscular Hemoglobin 25.3 pg (25-34); Mean Corpuscular Hgb Conc 31.7 g/dL (32-36); Mean Corpuscular Volume 79.9 fL (80-100); Mean Platelet Volume 10.1 fL (7.4-10.4); Platelet Count 238 K/uL (130-400); RDW Coefficient of Variation 15.4 % (11.5-14.5); RDW Standard Deviation 44.7 fL (36.4-46.3); Red Blood Count 3.48 M/uL (4.2-5.4); White Blood Count 20.44 K/uL (4.8-10.8)
[2021-03-09 08:35] LABS: Albumin Level 1.9 gm/dl (3.4-5.0); BUN Creatinine Ratio 15.9 (10-20); Calcium 8.1 mg/dl (8.5-10.1); Creatinine Clr Calc Pharmacy 146.4 ml/min; Est GFR (African American) 131.7 ml/min; Est GFR (Non-African American) 113.6 ml/min
[2021-03-09 08:38] LABS: Albumin Globulin Ratio 0.5 (0.9-2); Bilirubin,Total 0.4 mg/dl (0.2-1); Globulin 3.5 gm/dl (2.5-4.0); Total Protein 5.4 gm/dl (6.4-8.2)
[2021-03-09] MEDS: DOCUSATE SODIUM 100 MG CAP PO SCH ×2 (08:41→21:27)
[2021-03-09] MEDS: PRENATAL VITAMIN 1 TAB PO SCH (08:42)
[2021-03-09] MEDS: FERROUS SULFATE 325 MG TAB PO SCH (08:42)
[2021-03-09] MEDS: SIMETHICONE 80 MG CHEW PO SCH ×4 (08:42→21:27)
[2021-03-09] MEDS ORDERED: ZOLPIDEM TARTRATE 5 MG TAB PO PRN (17:57)
[2021-03-09] MEDS ORDERED: diphenhydrAMINE Capsule 25 MG CAP PO PRN (17:57)
[2021-03-09] MEDS ORDERED: PROMETHAZINE HCL 25 MG in SODIUM CHLORIDE 0.9% 50 ML IV PRN (17:57)
[2021-03-09] MEDS ORDERED: ONDANSETRON INJ 2 MG/ML 2 ML VIAL IV PRN (17:57)
[2021-03-09] MEDS ORDERED: diphenhydrAMINE 50 MG/ML VIAL IV PRN (17:57)
[2021-03-09] MEDS: oxyCODONE/ACETAMINOPHEN 5mg/325mg TAB PO PRN (18:35)
[2021-03-09] MEDS: IBUPROFEN 600 MG TAB PO PRN (18:35)
[2021-03-10] MEDS: oxyCODONE/ACETAMINOPHEN 5mg/325mg TAB PO PRN ×5 (00:41→20:46)
[2021-03-10] MEDS: IBUPROFEN 600 MG TAB PO PRN ×5 (00:41→20:45)
--- NOTE | 2021-03-10 06:40 | Obstetrical Progress Note ---
Date of Service <Ann Salcido MD - Last Filed: 03/10/21 08:03> March 10, 2021 Assessment & Plan <Ann Salcido MD - Last Filed: 03/10/21 08:03> (1) Encounter for care and examination after delivery: Stable, routine care -d/c CMP -CBC -vitals (HR, RR) -diet -encourage ambulation -Rh+, RI, GBS- -PM d/c (2) Supervision of elderly multigravida: <Lisa Morris DO - Last Filed: 03/10/21 08:18> (1) Encounter for care and examination after delivery: Stable, routine care -d/c CMP -CBC -vitals (HR, RR) -diet -encourage ambulation -Rh+, RI, GBS- (2) Supervision of elderly multigravida: Subjective <Ann Salcido MD - Last Filed: 03/10/21 08:03> Ambulation: ambulating normally Voiding: no voiding problems Passing Gas:: Yes Diet Tolerance:: regular diet Lochia:: Small Feeding Type:: breast feeding Current Pain Level(1-10): 3 36 y/o POD #2 after c/s for LGA. She was resting comfortably upon entering the room. Is currently supplementing breast feeds with bottle feeding as needed Review of Systems All systems reviewed & are unremarkable except as noted in Subjective Constitutional: + as per Subjective / HPI Respiratory: + as per Subjective / HPI Cardiovascular: + as per Subjective / HPI Breast: + see HPI Gastrointestinal: + as per Subjective / HPI Genitourinary (female): + as per Subjective / HPI Musculoskeletal: + as per Subjective / HPI Neurologic: + as per Subjective / HPI Psychiatric: + as per Subjective / HPI Physical Exam <Ann Salcido MD - Last Filed: 03/10/21 08:03> General: Alert, oriented. No acute distress. Cardiac: Regular rate and rhythm, no murmurs/rubs/gallops. Respiratory: Clear to auscultation bilaterally a/p, no wheezes/rales/rhonchi. No increased work of breathing. Symmetrical chest rise. No respiratory distress. Abdomen: Soft, nontender, nondistended. Bowel sounds present. Uterus: Uterine fundus firm, palpable cm below umbilicus. Surgical scar clean and healing well. Lower Extremities: No lower extremity edema or swelling. No deep calf pain. Greg's negative bilaterally. Constitutional WD/WN, vitals as above well developed, well nourished, + well hydrated, healthy appearing and comfort able Respiratory normal respiratory effort, lungs clear to auscultation Cardiovascular RRR, no murmur, no edema Chest (Breasts) normal inspection/palpation of breasts Chest: normal inspection of chest Gastrointestinal (Abdomen) normal bowel sounds, soft, nontender, no hepatosplenomegaly Inspection/Auscultation: abdomen normal to inspection Musculoskeletal Extremities: extremities normal to inspection Results & Data ([facility]) <Ann Salcido MD - Last Filed: 03/10/21 08:03> Vital Signs (Past 12 Hours) Vital Signs Temp Pulse Resp BP 03/10/21 00:35 36.7 C 105 H 20 141/88 H 03/09/21 19:42 36.6 C 106 H 20 112/74 <Lisa Morris DO - Last Filed: 03/10/21 08:18> Co-Signing Physician Notes Resident Physician Supervision Note: I was present with Dr. Salcido during the history and exam. I discussed the case with the resident and agree with the findings and plan as documented in the note. Any exceptions or clarifications are listed here: POD#2 doing well. No symptoms of preeclampsia, BPs have been 140s-150s/70-80s. PreE labs yesterday neg. Anticipate DC home tomorrow. Documented By: Lisa Morris DO Resident Activity Tracking <Ann Salcido MD - Last Filed: 03/10/21 08:03> Resident Involvement: Resident Care Provided Care Provided: OB Delivery
[2021-03-10 06:54] LABS: Hematocrit (blood only) 25.8 % (37-47); Hemoglobin 7.8 g/dL (12.0-16.0); Mean Corpuscular Hemoglobin 25.3 pg (25-34); Mean Corpuscular Hgb Conc 30.2 g/dL (32-36); Mean Corpuscular Volume 83.8 fL (80-100); Mean Platelet Volume 10.2 fL (7.4-10.4); Platelet Count 243 K/uL (130-400); RDW Coefficient of Variation 15.7 % (11.5-14.5); RDW Standard Deviation 47.9 fL (36.4-46.3); Red Blood Count 3.08 M/uL (4.2-5.4); White Blood Count 13.67 K/uL (4.8-10.8)
[2021-03-10 07:20] LABS: Basophils # (auto) 0.03 K/uL (0-0.2); Basophils % (auto) 0.2 %; Eosinophils # (auto) 0.27 K/uL (0-0.5); Immature Granulocytes # (auto) 0.15 K/uL (0.00-0.02); Immature Granulocytes % (auto) 1.1 %; Lymphocytes % (auto) 18.3 %; Microcytosis Present; Monocytes # (auto) 1.24 K/uL (0.11-0.59); Monocytes % (auto) 9.1 %; Neutrophils # (auto) 9.48 K/uL (1.4-6.5); Neutrophils % (auto) 69.3 %
[2021-03-10] MEDS: DOCUSATE SODIUM 100 MG CAP PO SCH ×2 (08:18→20:45)
[2021-03-10] MEDS: PRENATAL VITAMIN 1 TAB PO SCH (08:18)
[2021-03-10] MEDS: FERROUS SULFATE 325 MG TAB PO SCH (08:18)
[2021-03-10] MEDS: SIMETHICONE 80 MG CHEW PO SCH ×3 (08:19→20:45)
--- NOTE | 2021-03-11 05:59 | Obstetrical Progress Note ---
Date of Service <Ann Salcido MD - Last Filed: 03/11/21 06:45> March 11, 2021 Assessment & Plan <Ann Salcido MD - Last Filed: 03/11/21 06:45> (1) Encounter for care and examination after delivery: Stable, routine care -improving pain well controlled by medication -continues to tolerate diet -ambulating well -Rh+, RI, GBS- -d/c AM (2) Supervision of elderly multigravida: (3) Preeclampsia: bp elevation again yesterday but no clinical suspicion at the moment for preeclampsia. -plan for short term BP check at outpatient clinic next week <Kaity Brewster MD - Last Filed: 03/11/21 06:50> (1) Encounter for care and examination after delivery: (2) Supervision of elderly multigravida: (3) Preeclampsia: Subjective <Ann Salcido MD - Last Filed: 03/11/21 06:45> 36 y/o female who is POD #3 following for LGA at 39.1 WGA. She reports feeling well overall this morning. 3/10 pain well managed on analgesics. Voiding +. Tolerating meals overnight and is ambulating without difficulty. + passing gas but has not had a bowel movement. Has minimal lochia . Currently breast feeding with bottle supplementation. Review of Systems Denies fever, chills, sweats Denies shortness of breath, difficulty breathing, chest pain, palpitations, chest pressure. Denies breast pain. Denies dysuria. She admits to a slight headache that is much improved from earlier this morning. Review of Systems All systems reviewed & are unremarkable except as noted in HPI & below Physical Exam <Ann Salcido MD - Last Filed: 03/11/21 06:45> Constitutional WD/WN, vitals as above Respiratory normal respiratory effort, lungs clear to auscultation Cardiovascular RRR, no murmur, no edema Gastrointestinal (Abdomen) normal bowel sounds, soft, nontender, no hepatosplenomegaly Musculoskeletal no cyanosis or clubbing, extremities motor strength 5/5 Results & Data ([facility]) <Ann Salcido MD - Last Filed: 03/11/21 06:45> Vital Signs (Past 12 Hours) Vital Signs Temp Pulse Resp BP Pulse Ox 03/11/21 00:30 36.8 C 101 H 16 120/80 97 03/10/21 20:25 36.6 C 108 H 20 131/86 98 <Kaity Brewster MD - Last Filed: 03/11/21 06:50> Co-Signing Physician Notes Resident Physician Supervision Note: I interviewed and examined the patient. Discussed with Dr. Salcido and agree with findings and plan as documented in the note. Any exceptions or clarifications are listed here: None Documented By: Kaity Brewster MD, FACOG
[2021-03-11] MEDS: oxyCODONE/ACETAMINOPHEN 5mg/325mg TAB PO PRN (06:13)
[2021-03-11] MEDS: IBUPROFEN 600 MG TAB PO PRN (06:14)
[2021-03-11] MEDS: PRENATAL VITAMIN 1 TAB PO SCH (07:50)
[2021-03-11] MEDS: DOCUSATE SODIUM 100 MG CAP PO SCH (07:50)
[2021-03-11] MEDS: FERROUS SULFATE 325 MG TAB PO SCH (07:50)
[2021-03-11] MEDS: SIMETHICONE 80 MG CHEW PO SCH (07:50)
--- NOTE | 2021-03-12 14:16 | Discharge Summary ---
Date of Service Date of admission February Date of discharege March 11, 2021 Admission HPI Per Admitting Provider Ioana Bailey is a 36 y/o female currently at 39.1 WGA with an STEPHANIE 03/14/21 as determined by ultrasound who is here for term induction for large gestational age. no contractions; no movement; no fluid loss; no bloody show Had regular appointments with OB. PNC complicated by 1. IVF icsi 2. AMA 3. LGA 02/17/21 efw> 98th percentile Labs: Blood type: A positive Rubella: immune VDRL/RPR: non reactive Gonorrhea: negative Chlamydia: negative HIV: negative HbSAg: negative GBS: negative Covid-19: negative Other screens: cff-DNA: declined Discharge Data Consultations 03/08/21 08:07 Consult Anesthesiology Stat Procedures Performed Operation Date: 03/08/21 22:50 Actual Procedures p Primary Low Transverse Section in - Hilary Olea MD, [facility] (1) Encounter for care and examination after delivery: Patient desired induction of labor for LGA, AMA, IVF/ICSI. Dilated to complete and pushed for <1hr and opted to proceed with elective c/s. The patient underwent the above stated procedure without incident and her postoperative course and recovery was uncomplicated. On her postoperative day #3 she was tolerating a regular diet, voiding spontaneously, ambulating without problem and was using oral meds for adequate pain control. Her postoperative hemoglobin was 7.8. She had a few episodes of elevated bps but then would normalize, normal labs. Plan at discharge was for bp check in office in one week. She was given written and verbal discharge instructions and told to followup in office at 6wks as well. She was given appropriate pain medicine prescriptions. Coding Level of Care Code None Diagnoses Encounter for care and examination after delivery Z39.2
== END 2021-03-11 10:30 | disposition home or self-care (01) | DRG 788 ==
LOC: 4S1 07:43 → 4S2 03-09 02:55